=== PATIENT | female | born 1965 | race Caucasian/White ===

== ENCOUNTER 2017-01-13 13:43 | Emergency (ER) | payer MEDICAID, MEDICARE ==
[~2017-01-13] VITALS: Ht 149.9 cm; Wt 67.2 kg
[~2017-01-13 13:43] MED LIST: BUSP10TA23 PO; CALC-724 PO; CLOM25 PO; CLON1TAB4 PO; FLUT16H NASAL; FLUV100C PO; SENN8.6C5 PO; TOPI100 PO; TRAZ-147 PO
[2017-01-13] MEDS ORDERED: HYDROCODONE/ACETAMINOPHEN 5-325 MG TABLET PO ONE (14:30)
[2017-01-13 19:00] VITALS: BP 124/86
== END 2017-01-13 19:26 | disposition home or self-care (01) ==
LOC: EMS 13:45
DX: S42.411A Displaced simple supracondylar fracture without intercondylar fracture of right humerus, initial encounter for closed fracture (principal); M25.521 Pain in right elbow; J45.909 Unspecified asthma, uncomplicated; F32.9 Major depressive disorder, single episode, unspecified; W18.30XA Fall on same level, unspecified, initial encounter; Y93.89 Activity, other specified; Y92.511 Restaurant or cafe as the place of occurrence of the external cause; Y99.9 Unspecified external cause status
CPT/HCPCS: 29105; 99284

== ENCOUNTER → 2020-12-13 | Outpatient (CLI) | payer MEDICARE, MEDICAID ==
[~2020-12-13] MED LIST changes: +ACET-784 PO; +ADV500 IH; +ALBU0.212 IH; +BENZ-70 PO; -CLOM25 PO; -CLON1TAB4 PO; +CYCL05OE OU; +FLUO15CR35 TP; +FLUV150C2 PO; +FOLI-130 PO; +HYDR-4061 PO; +HYDR200T4 PO; +LEVO50 PO; +LORA5SOL62 PO; +MULT-1192 PO; +MUPI1OIN5 TP; +RANI150T7 PO; -TOPI100 PO; +TOPI100T37 PO; -TRAZ-147 PO; +TRAZ-257 PO
[2020-12-13 12:54] LABS: CALCIUM, TOTAL 8.7 mg/dL (8.8-10.5); CREATININE 1.45 mg/dL (0.60-1.30); POTASSIUM 4.1 mmol/L (3.5-5.1); THYROID STIMULATING HORMONE 3.13 uIU/mL (0.36-3.74)
[2020-12-13 13:40] LABS: APPEARANCE,URINE CLEAR (CLEAR); BILIRUBIN,URINE NEGATIVE (NEGATIVE); GLUCOSE, URINE (UA) NEGATIVE (NEGATIVE); KETONES,URINE NEGATIVE (NEGATIVE); LEUKOCYTE ESTERASE ,URINE NEGATIVE (NEGATIVE); NITRATE,URINE NEGATIVE (NEGATIVE); OCCULT BLOOD,URINE NEGATIVE (NEGATIVE); PH,URINE 6.5 (5.0-8.0); PROTEIN,URINE NEGATIVE (NEGATIVE); UROBILINOGEN,URINE 0.2 mg/dL (<=1.0)
== END | disposition home or self-care (01) ==
LOC: LABPV 10:23
PROVIDERS: ATTEND Internal Medicine Nephrology
DX: N18.30 Chronic kidney disease, stage 3 unspecified (principal); E03.9 Hypothyroidism, unspecified; D68.62 Lupus anticoagulant syndrome
CPT/HCPCS: 80048; 81003; 84443; 86160